=== PATIENT | female | born 1975 | race Caucasian/White ===

== ENCOUNTER 2019-06-03 18:01 | Emergency (ER) | payer BC, OTHER ==
[~2019-06-03] VITALS: Ht 157.5 cm; Wt 111.7 kg
[2019-06-03] MEDS ORDERED: PRIL20TA2 PO (18:09)
[2019-06-03] MEDS ORDERED: CETI5SOL3 PO (18:09)
--- NOTE | 2019-06-03 18:57 | REP ---
Clinical: Right shoulder trauma . Technique: Internal rotation, external rotation, and Y view. Findings: No acute fracture or dislocation. The acromioclavicular and glenohumeral joints are intact. No periarticular calcifications or degenerative changes are appreciated. Sub acromial space is normal. Surrounding soft tissues are unremarkable. Impression: Normal right shoulder radiographs. Electronically Signed by Joe Hurtado MD 06/03/2019 06:49 P
[2019-06-03] MEDS ORDERED: PERCOCET 5MG/325MG TAB PO ONE (19:00)
--- NOTE | 2019-06-03 19:46 | REP ---
Clinical: Trauma. Fall. Technique: Two views of the right clavicle. Findings: No acute fracture or dislocation. Sternoclavicular and acromioclavicular joints are intact. Surrounding soft tissues are unremarkable. Impression: No acute fracture or dislocation. Electronically Signed by Joe Hurtado MD 06/03/2019 07:38 P
[2019-06-03] MEDS ORDERED: NORC1TAB7 PO (19:54)
[2019-06-03 20:00] VITALS: BP 139/79
== END 2019-06-03 20:01 | disposition home or self-care (01) ==
LOC: M ED 18:01
DX: S46.911A Strain of unspecified muscle, fascia and tendon at shoulder and upper arm level, right arm, initial encounter (principal); W00.0XXA Fall on same level due to ice and snow, initial encounter; Y92.524 Gas station as the place of occurrence of the external cause; K21.9 Gastro-esophageal reflux disease without esophagitis; Z91.012 Allergy to eggs; Z79.899 Other long term (current) drug therapy